=== PATIENT | female | born 1965 | race Caucasian/White ===

== ENCOUNTER → 2019-05-11 12:08 | Outpatient (CLI) | payer MEDICAID, SELFPAY ==
[2019-05-11 12:28] LABS: Erythrocyte Sedimentation Rate 40 mm/hr (0-30)
[2019-05-11 12:30] LABS: Lipase 203 U/L (73-393)
== END ==
PROVIDERS: Family Provider Student in an Organized Health Care Education/Training Program; PCP Student in an Organized Health Care Education/Training Program; Referring Provider Nurse Practitioner Primary Care; Visit Provider Nurse Practitioner Primary Care
DX: R10.84 Generalized abdominal pain (principal)
CPT/HCPCS: 83690; 85652